=== PATIENT | male | born 1950 | race Caucasian/White ===

== ENCOUNTER → 2019-09-24 08:46 | Outpatient (CLI) | payer MEDICARE ==
[2013-01-27 10:27] VITALS: BMI 28.0
[~2019-09-24 08:46] MED LIST: HYTRIN10 MG PO; LOPRESSOR50 MG PO; NORCO 5/325 TAB1 TA1 PO; ZOCOR40 MG PO
== END | disposition home or self-care (01) ==
LOC: D.HCCECHO 08:46
PROVIDERS: ATTEND Internal Medicine Cardiovascular Disease
DX: I25.10 Atherosclerotic heart disease of native coronary artery without angina pectoris (principal)